=== PATIENT | male | born 1990 | race Caucasian/White ===

== ENCOUNTER 2017-11-25 15:39 | Emergency (ER) | payer SELFPAY ==
[~2017-11-25] VITALS: Ht 188 cm; Wt 98.1 kg
[2017-11-25] MEDS ORDERED: XANAX2 MG PO (17:00)
[2017-11-25] MEDS ORDERED: LIBRIUM25 MG PO (18:38)
[2017-11-25] MEDS ORDERED: THIAMINE HCL100 MG PO (18:38)
[2017-11-25 19:34] VITALS: BP 138/82
== END 2017-11-25 19:35 | disposition home or self-care (01) ==
LOC: EME 15:39
DX: F40.00 Agoraphobia, unspecified (principal); Z76.0 Encounter for issue of repeat prescription
CPT/HCPCS: 99281; 99284